=== PATIENT | female | born 1990 ===

== ENCOUNTER 2018-01-20 12:24 | Emergency (ER) | payer MEDICAID ==
[2018-01-20 12:57] VITALS: RESP 18
[2018-01-20] MEDS ORDERED: Sodium Chloride 0.9% 1,000 ML IV STA (13:55)
--- NOTE | 2018-01-20 13:59 | ED PDOC ---
Arrival/HPI - General Historian: Patient - History of Present Illness Narrative History of Present Illness (Text): 01/20/18 17:51 27-year-old female presents today with a sore throat headaches fevers and fatigue. Patient states symptoms started 5 days ago but worsened 2 days ago. Patient states she is able to eat and drink but has pain with swallowing. Patient states just she noticed white patches on the back of the throat/tonsils. Patient states she's been taking Motrin and Excedrin at home for pain without improvement. Patient states she's been running fevers of 101 at home. Patient denies chest pain or shortness of breath. She denies nasal congestion. Patient is complaining of a headache although she did not take any medicine for pain today. Patient denies sick contacts. No nausea or vomiting. No other complaints <Naomi Mcdermott - Last Filed: 01/20/18 17:51> <Elías Bashir - Last Filed: 01/22/18 16:47> - General Chief Complaint: ENT Problem Time Seen by Provider: 01/20/18 13:17 Past Medical History - Provider Review Nursing Documentation Reviewed: Yes - Travel History Have you recently traveled outside [place] w/in the past 3 mons?: No - Infectious Disease Hx of Infectious Diseases: None - Reproductive Menopause: No - Cardiac Hx Cardiac Disorders: No - Pulmonary Hx Asthma: Yes - Renal Hx Renal Disorder: No - Endocrine/Metabolic Hx Endocrine Disorders: No Hx Diabetes Mellitus Type 1: Yes - Psychiatric Hx Substance Use: No - Anesthesia Hx Anesthesia: No <Naomi Mcdermott - Last Filed: 01/20/18 17:51> Family/Social History - Physician Review Nursing Documentation Reviewed: Yes Family/Social History: Unknown Family HX Smoking Status: Unknown If Ever Smoked Hx Alcohol Use: No Hx Substance Use: No <Naomi Mcdermott - Last Filed: 01/20/18 17:51> Allergies/Home Meds <Naomi Mcdermott - Last Filed: 01/20/18 17:51> <Elías Bashir - Last Filed: 01/22/18 16:47> Allergies/Adverse Reactions: Allergies No Known Allergies Allergy (Verified 01/21/18 13:00) Home Medications: Home Meds Medication Instructions Recorded Confirmed Insulin Aspart, Recombinant 10 unit SQ PRN 01/20/18 01/21/18 [Novolog] Insulin Detemir [Levemir] 10 unit SC HS 01/20/18 01/21/18 Review of Systems - Review of Systems Constitutional: Fatigue, Fevers ENT: Sore Throat. absent: Sinus Congestion Respiratory: absent: SOB, Cough Cardiovascular: absent: Chest Pain Gastrointestinal: absent: Abdominal Pain, Nausea, Vomiting Genitourinary Female: absent: Dysuria Musculoskeletal: absent: Arthralgias Skin: absent: Rash, Pruritis Neurological: Headache, Dizziness Psychiatric: absent: Anxiety, Depression <Naomi Mcdermott T - Last Filed: 01/20/18 17:51> Physical Exam Vital Signs Reviewed: Yes Vital Signs Temp Pulse Resp BP Pulse Ox 01/20/18 12:52 101.2 F H 85 18 115/76 98 Temperature: Febrile Blood Pressure: Normal Pulse: Regular Respiratory Rate: Normal Appearance: Positive for: Well-Appearing, Non-Toxic, Comfortable Pain Distress: None Mental Status: Positive for: Alert and Oriented X 3 Finger Stick Blood Glucose: 263 - Systems Exam Head: Present: Atraumatic Pupils: Present: PERRL Extroacular Muscles: Present: EOMI Conjunctiva: Present: Normal Ears: Present: Normal, NORMAL TM. No: Erythema Mouth: Present: Moist Mucous Membranes, Normal Lips, Normal Tounge. No: Drooling, Trismus Pharnyx: Present: ERYTHEMA, EXUDATE. No: TONSILS ENLARGED Nose (External): Present: Atraumatic Nose (Internal): Present: Normal Inspection Neck: Present: Normal Range of Motion, Lymphadenopathy, Trachea Midline Respiratory/Chest: Present: Clear to Auscultation, Good Air Exchange. No: Respiratory Distress, Accessory Muscle Use Cardiovascular: Present: Regular Rate and Rhythm, Normal S1, S2. No: Murmurs Abdomen: No: Tenderness, Distention, Rebound, Guarding Upper Extremity: Present: Normal ROM Lower Extremity: Present: Normal ROM Neurological: Present: GCS=15, Speech Normal Skin: Present: Warm, Dry, Normal Color. No: Rashes Psychiatric: Present: Alert, Oriented x 3 <Naomi Mcdermott T - Last Filed: 01/20/18 17:51> Vital Signs Temp Pulse Resp BP Pulse Ox 01/20/18 15:21 98.3 F 74 18 106/59 L 99 01/20/18 15:11 98.3 F 71 18 106/59 L 99 01/20/18 12:52 101.2 F H 85 18 115/76 98 <Elías Bashir - Last Filed: 01/22/18 16:47> Medical Decision Making ED Course and Treatment: 01/20/18 15:11 Patient is nontoxic well appearing in no distress. febrile. no distress. Tolerating p.o. fluids and solids fingerstick; 263 toradol 30IV NS IV bolus amoxicillin PO Patient reassessment: Patient feeling better after medications, vital signs stable. Moist mucous membranes. I advised follow up with primary care physician within the next 2 days, advised to increase fluids take medications as prescribed and return if symptoms worsen persist or if new symptoms develop Patient verbalizes understanding of discharge instructions and need for immediate followup. IMPRESSION; pharyngitis Motrin every 6 hours as needed for pain/fever reduction Increase fluids Amoxicillin; One tablet twice daily x10 days Follow up primary care physician within the next 2 days Follow up with the ENT specialist within the next 2 days. Saltwater gargles, throat lozenges Return if symptoms worsen persist or if the symptoms develop Reassessment Condition: Re-examined, Improved - Medication Orders Current Medication Orders: Discontinued Medications Acetaminophen (Tylenol 325mg Tab) 975 mg PO STAT STA Stop: 01/20/18 13:18 Last Admin: 01/20/18 13:36 Dose: 975 mg MAR Pain/Vitals Document 01/20/18 13:36 SPEAR FISHER (Rec: 01/20/18 13:36 [facility] [id number] Pain Reassessment Is This A Pain ReAssessment? Yes Sleep Is patient sleeping during reassessment? No Presence of Pain Presence of Pain Yes Pain Scale Used Protocol: PSCALES Pain Scale Used Numeric Location Intensity 8 Scale Used Numeric <Naomi Mcdermott - Last Filed: 01/20/18 17:51> - Medication Orders Current Medication Orders: Discontinued Medications Acetaminophen (Tylenol 325mg Tab) 975 mg PO STAT STA Stop: 01/20/18 13:18 Last Admin: 01/20/18 13:36 Dose: 975 mg MAR Pain/Vitals Document 01/20/18 13:36 SPEAR FISHER (Rec: 01/20/18 13:36 [facility]AR FISHER [facility] [id number] Pain Reassessment Is This A Pain ReAssessment? Yes Sleep Is patient sleeping during reassessment? No Presence of Pain Presence of Pain Yes Pain Scale Used Protocol: PSCALES Pain Scale Used Numeric Location Intensity 8 Scale Used Numeric Amoxicillin (Amoxil 500 Mg Cap) 500 mg PO STAT STA; Protocol Stop: 01/20/18 13:56 Last Admin: 01/20/18 14:23 Dose: 500 mg Sodium Chloride (Sodium Chloride 0.9%) 1,000 mls @ 999 mls/hr IV .Q1H1M STA Stop: 01/20/18 14:55 Last Admin: 01/20/18 14:21 Dose: 999 mls/hr eMAR Start Stop Document 01/20/18 14:21 SRE (Rec: 01/20/18 14:23 SRE [id number]) Intravenous Solution Start Date 01/20/18 Start Time 14:00 End Date 01/20/18 End time 15:00 Total Infusion Time 60 Ketorolac Tromethamine (Toradol) 30 mg IVP STAT STA Stop: 01/20/18 13:56 Last Admin: 01/20/18 14:24 Dose: 30 mg MAR Pain Assessment Document 01/20/18 14:24 SRE (Rec: 01/20/18 14:24 SRE [id number]) Pain Reassessment Is this a pain reassessment? Yes IVP Administration Document 01/20/18 14:24 SRE (Rec: 01/20/18 14:24 SRE [id number]) Charges for Administration # of IVP Administrations 1 <Elísa Bashir - Last Filed: 01/22/18 16:47> - PA / MATTE CUTTER / Resident Statement MD/DO has reviewed & agrees with the documentation as recorded. <Elías Bashir - Last Filed: 01/22/18 16:47> Disposition/Present on Arrival - Present on Arrival Any Indicators Present on Arrival: No History of DVT/PE: No History of Uncontrolled Diabetes: No Urinary Catheter: No History of Decub. Ulcer: No History Surgical Site Infection Following: None - Disposition Have Diagnosis and Disposition been Completed?: Yes Disposition Time: 13:50 Patient Plan: Discharge <Naomi Mcdermott - Last Filed: 01/20/18 17:51> <Elías Bashir - Last Filed: 01/22/18 16:47> - Disposition Diagnosis: Pharyngitis Disposition: HOME/ ROUTINE Condition: GOOD Discharge Instructions (ExitCare): Sore Throat, Adult (DC) Additional Instructions: Motrin every 6 hours as needed for pain/fever reduction Increase fluids Amoxicillin; One tablet twice daily x10 days Follow up primary care physician within the next 2 days Follow up with the ENT specialist within the next 2 days. Saltwater gargles, throat lozenges Return if symptoms worsen persist or if the symptoms develop Prescriptions: RX: Amoxicillin 875 mg PO BID #20 tab Ibuprofen [Motrin] 600 mg PO Q6H PRN #20 tab PRN Reason: pain/fever reduction Referrals: Seth Kerns DO [Doctor Osteopathy] - Follow up with primary Emily Sotomayor MD [Medical Doctor] - Follow up with primary [facility] [Outside] - Follow up with primary Forms: [employer] ([place]an), WORK NOTE
[2018-01-20 15:16] VITALS: TEMP 98.3; O2SAT 99
[2018-01-20 15:20] VITALS: BP 106/59
[2018-01-20 15:22] VITALS: PULSE 74
== END 2018-01-20 15:21 | disposition home or self-care (01) ==
LOC: ED 12:24
DX: J02.9 Acute pharyngitis, unspecified (principal)
CPT/HCPCS: 96361; 96374; 99283; J1885; J7030

== ENCOUNTER 2018-01-21 12:30 | Emergency (ER) | payer MEDICAID ==
--- NOTE | 2018-01-21 12:41 | ED PDOC ---
Arrival/HPI - General Time Seen by Provider: 01/21/18 12:31 Historian: Patient - History of Present Illness Narrative History of Present Illness (Text): 01/21/18 12:38 27 y/o female, pmh including dm, nkda, c/o throat pain/fever/painful swallowing x 3 days. Pt. was seen in the ER yesterday, prescribed amoxicillin 875mg po and took 3 doses in total with no improvement, pain worsened, painful to swallow, no night sweat, has not been eating, no chest pain or shortness of breath, no palpitation, no dizziness, no tongue swelling, no numbness or tingling, no other medical or psychological complaints. Past Medical History - Provider Review Nursing Documentation Reviewed: Yes - Infectious Disease Hx of Infectious Diseases: None - Cardiac Hx Cardiac Disorders: No - Pulmonary Hx Asthma: Yes - Renal Hx Renal Disorder: No - Endocrine/Metabolic Hx Endocrine Disorders: No Hx Diabetes Mellitus Type 1: Yes - Psychiatric Hx Substance Use: No - Anesthesia Hx Anesthesia: No Family/Social History - Physician Review Nursing Documentation Reviewed: Yes Family/Social History: Unknown Family HX Smoking Status: Unknown If Ever Smoked Hx Alcohol Use: No Hx Substance Use: No Allergies/Home Meds Allergies/Adverse Reactions: Allergies No Known Allergies Allergy (Verified 01/21/18 13:00) Home Medications: Home Meds Medication Instructions Recorded Confirmed Insulin Aspart, Recombinant 10 unit SQ PRN 01/20/18 01/21/18 [Novolog] Insulin Detemir [Levemir] 10 unit SC HS 01/20/18 01/21/18 Review of Systems - Review of Systems Constitutional: Fatigue, Fevers Eyes: absent: Vision Changes ENT: Sore Throat. absent: Hearing Changes Respiratory: absent: SOB, Cough Cardiovascular: absent: Chest Pain, Syncope Gastrointestinal: absent: Abdominal Pain, Nausea, Vomiting Skin: absent: Rash, Pruritis Neurological: absent: Headache, Dizziness Psychiatric: absent: Anxiety, Depression, Suicidal Ideation Physical Exam Vital Signs Reviewed: Yes Temperature: Afebrile Blood Pressure: Normal Pulse: Regular Respiratory Rate: Normal Appearance: Positive for: Well-Appearing, Non-Toxic, Comfortable Pain Distress: Moderate Mental Status: Positive for: Alert and Oriented X 3 - Systems Exam Head: Present: Atraumatic, Normocephalic Pupils: Present: PERRL Extroacular Muscles: Present: EOMI Conjunctiva: Present: Normal Ears: Present: NORMAL TM, Normal Canal. No: Erythema Mouth: Present: Moist Mucous Membranes, Normal Lips, Normal Tounge, Normal Teeth, Other. No: Drooling, Trismus Pharnyx: Present: ERYTHEMA, Other (multiple ruptured vesciular lesion on the tongue/bilateral buccal mucosa and tongue region). No: EXUDATE, Peritonsilar Swelling, Uvular Deviation, Muffled/Hoarse Voice, Strider, Soft Palate/Uvular Edema Nose (External): Present: Atraumatic. No: Abrasion, Contusion, Laceration Nose (Internal): Present: Normal Inspection Neck: Present: Normal Range of Motion, Trachea Midline. No: Meningeal Signs, MIDLINE TENDERNESS, Paraspinal Tenderness Respiratory/Chest: Present: Clear to Auscultation, Good Air Exchange. No: Respiratory Distress, Accessory Muscle Use Cardiovascular: Present: Regular Rate and Rhythm, Normal S1, S2. No: Murmurs Abdomen: No: Tenderness, Distention, Peritoneal Signs Back: Present: Normal Inspection Upper Extremity: Present: Normal Inspection. No: Cyanosis, Edema Lower Extremity: Present: Normal Inspection. No: Edema Neurological: Present: GCS=15, CN II-XII Intact, Speech Normal Skin: Present: Warm, Dry, Normal Color. No: Rashes Lymphatic: Present: Cervical Adenopathy (lt. anterior) Psychiatric: Present: Alert, Oriented x 3, Normal Insight, Normal Concentration Medical Decision Making ED Course and Treatment: 01/21/18 12:42 -labs/rapid strep/mono/herpes swab -IVF/toradol -Observe and reassess 01/21/18 16:39 -Urine hcg is negative -Rapid strept is negative -Labs show no acute findings -Pt. is eating and drinking well, eating and drinking well, no difficulty swallowing, moving the neck with no difficulty. -Case discussed with Dr. Mendez, infectious disease conservation biology professor, discussed about the case/HPI, recommend to treat with valtrex 1gm po bid. -Discussed with Dr. Campbell and he agreed on the treatment/dispo plan. -Valtrex 1gm po ordered. -Discharge home with valtrex, viscous lidocaine po solution to swish and spit, continue motrin at home, follow up on the lab result, follow up with your own pmd and ENT within 2 days, return to the ER for any new or worsening signs or symptoms. - PA / COLLECTIONS AGENT / Resident Statement / has reviewed & agrees with the documentation as recorded. Disposition/Present on Arrival - Present on Arrival Any Indicators Present on Arrival: No History of DVT/PE: No History of Uncontrolled Diabetes: No Urinary Catheter: No History of Decub. Ulcer: No History Surgical Site Infection Following: None - Disposition Have Diagnosis and Disposition been Completed?: Yes Diagnosis: Viral vesicles of mouth Disposition: HOME/ ROUTINE Disposition Time: 16:42 Patient Plan: Discharge Condition: IMPROVED Additional Instructions: -Discharge home with valtrex, viscous lidocaine po solution to swish and spit, continue motrin at home, follow up on the lab result, follow up with your own pmd and ENT within 2 days, return to the ER for any new or worsening signs or symptoms. Prescriptions: Lidocaine 2% Viscous 15 ml MM TID PRN #125 ml PRN Reason: Other valACYclovir [Valtrex] 1 gm PO BID #14 tab Referrals: Ervin Olvera MD [Primary Care Provider] - Follow up with primary Seth Kerns DO [Doctor Osteopathy] - Follow up with primary Humberto Mendez MD [Staff Provider] - Follow up with primary Forms: WORK NOTE
[2018-01-21 12:49] VITALS: BMI 25.4
[2018-01-21] MEDS ORDERED: Sodium Chloride 0.9% 1,000 ML IV STA (12:53)
[2018-01-21 15:05] LABS: ALBUMIN 3.7 g/dL (3.0-4.8); ALT/SGPT 24 U/L (7-56); AST/SGOT 26 U/L (14-36); BLOOD UREA NITROGEN 9 mg/dL (7-21); CALCIUM 8.8 mg/dL (8.4-10.5); GFR NON-AFRICAN AMERICAN > 60
[2018-01-21 15:17] LABS: BASO # 0.04 K/mm3 (0.0-2.0); BASO % 0.6 % (0.0-3.0); EOS % 0.3 % (1.5-5.0); GRAN # 4.52 (1.4-6.5); GRAN % 69.2 % (50.0-68.0); HEMOGLOBIN 12.5 g/dL (12.0-16.0); LYMPH # 1.5 (1.2-3.4); LYMPH % 22.3 % (22.0-35.0); MEAN CELL VOLUME 88.1 fl (80.0-105.0); MEAN CORPUSCULAR HEMOGLOBIN 29.1 pg (25.0-35.0); MEAN CORPUSCULAR HGB CONC 33.1 g/dl (31.0-37.0); MEAN PLATELET VOLUME 10.3 fl (7.0-11.0); MONO # 0.5 (0.1-0.6); MONO % 7.6 % (1.0-6.0); RBC 4.29 10^6/uL (3.5-6.1); RED CELL DISTRIBUTION WIDTH 14.6 % (11.5-14.5); WHITE BLOOD COUNT 6.5 10^3/ul (4.5-11.0)
[2018-01-21 17:16] VITALS: RESP 16
[2018-01-21 17:18] VITALS: BP 123/64; PULSE 72; TEMP 98.1; O2SAT 99
== END 2018-01-21 17:18 | disposition home or self-care (01) ==
LOC: ED 12:30
DX: K13.79 Other lesions of oral mucosa (principal); E11.9 Type 2 diabetes mellitus without complications
CPT/HCPCS: 80053; 85025; 86308; 87070; 87255; 87430; 96361; 96374; 99283; J1885; J7030